=== PATIENT | female | born 1975 | race Caucasian/White ===

== ENCOUNTER 2017-12-27 08:07 | Emergency (ER) | payer MEDICAID ==
--- NOTE | 2017-12-27 08:55 | ER Document Report ---
ED General - General Chief Complaint: Chest Congestion Stated Complaint: COUGH Time Seen by Provider: 12/27/17 08:54 TRAVEL OUTSIDE OF THE [place] IN LAST 30 DAYS: No - Related Data Allergies/Adverse Reactions: Penicillins Allergy (Verified 08/10/13 15:51) Past Medical History - Social History Smoking Status: Current Every Day Smoker Chew tobacco use (# tins/day): No Frequency of alcohol use: None Drug Abuse: None Family History: Reviewed & Not Pertinent Patient has suicidal ideation: No Patient has homicidal ideation: No Neurological Medical History: Reports: Hx Migraine Renal/ Medical History: Denies: Hx Peritoneal Dialysis - Immunizations Hx Diphtheria, Pertussis, Tetanus Vaccination: No Physical Exam - Vital signs Vitals: Temp Pulse Resp BP Pulse Ox 97.8 F 64 16 124/81 97 12/27/17 08:21 12/27/17 08:21 12/27/17 08:21 12/27/17 08:21 12/27/17 08:21 Course - Vital Signs Vital signs: Temp Pulse Resp BP Pulse Ox 97.8 F 64 16 124/81 97 12/27/17 08:21 12/27/17 08:21 12/27/17 08:21 12/27/17 08:21 12/27/17 08:21
--- NOTE | 2017-12-27 09:35 | RADIOLOGY REPORT (SQ) ---
EXAM DESCRIPTION: CHEST PA/LAT COMPLETED DATE/TIME: 12/27/2017 9:28 am REASON FOR STUDY: cough congestion COMPARISON: Two-view chest 08/24/2013, 10/14/2009 EXAM PARAMETERS: NUMBER OF VIEWS: two views TECHNIQUE: Digital Frontal and Lateral radiographic views of the chest acquired. RADIATION DOSE: NA LIMITATIONS: none FINDINGS: LUNGS AND PLEURA: No opacities, masses or pneumothorax. No pleural effusion. MEDIASTINUM AND HILAR STRUCTURES: No masses or contour abnormalities. HEART AND VASCULAR STRUCTURES: Heart normal size. No evidence for failure. BONES: No acute findings. HARDWARE: None in the chest. OTHER: No other significant finding. IMPRESSION: NO SIGNIFICANT RADIOGRAPHIC FINDING IN THE CHEST. TECHNICAL DOCUMENTATION: JOB ID: [id number] [employer]- All Rights Reserved Reading location - IP/workstation name: [email or web address]
[2017-12-27] MEDS ORDERED: LORATADINE 10 MG TABLET PO ONE (09:54)
[2017-12-27] MEDS ORDERED: GUAIFENESIN 600 MG TABLET.SA PO ONE (09:54)
[2017-12-27] MEDS ORDERED: PSEUDOEPHEDRINE HCL 30 MG TABLET PO ONE (09:54)
--- NOTE | 2017-12-27 09:58 | ER Document Report ---
ED Respiratory Problem - General Chief Complaint: Chest Congestion Stated Complaint: COUGH Time Seen by Provider: 12/27/17 08:54 Mode of Arrival: Ambulatory Information source: Patient Notes: 42-year-old female presents to ED for complaint of cough congestion runny nose sore throat and earache. She states she is not bringing up any mucus. She states she was diagnosed with flu last week and just finished her Tamiflu. Does smoke a pack a day. TRAVEL OUTSIDE OF THE [place] IN LAST 30 DAYS: No - HPI Patient complains to provider of: Cough Onset: Last week Duration: Continuous Initiating Event: URI Quality of pain: Achy Severity: Moderate Pain Level: 3 Context: Smoker, Other - States she was diagnosed with flu last week finished her Tamiflu cough congestion Cough: Nonproductive Sputum amount: None Associated symptoms: Congestion, Cough, PND, Runny nose, Sinus pain/pressure, Sore Throat Similar symptoms previously: Yes Recently seen / treated by doctor: Yes - Related Data Allergies/Adverse Reactions: Penicillins Allergy (Verified 08/10/13 15:51) Past Medical History - Social History Smoking Status: Current Every Day Smoker Cigarette use (# per day): Yes - Pack per day Chew tobacco use (# tins/day): No Smoking Education Provided: Yes - 4 minutes Frequency of alcohol use: None Drug Abuse: None Occupation: Does not work Lives with: Family Family History: Reviewed & Not Pertinent. denies: Arthritis, CAD, COPD, CVA, DM , Hyperlipidemia, Hypertension, Malignancy, Thyroid Disfunction Patient has suicidal ideation: No Patient has homicidal ideation: No - Past Medical History Cardiac Medical History: Reports: None Pulmonary Medical History: Reports: None EENT Medical History: Reports: None Neurological Medical History: Reports: Hx Migraine Endocrine Medical History: Reports: None Renal/ Medical History: Reports: None Malignancy Medical History: Reports: None GI Medical History: Reports: None Musculoskeltal Medical History: Reports None Skin Medical History: Reports None Psychiatric Medical History: Reports: None Traumatic Medical History: Reports: None Infectious Medical History: Reports: None Surgical Hx: Negative Past Surgical History: Reports: None - Immunizations Immunizations up to date: Yes Hx Diphtheria, Pertussis, Tetanus Vaccination: No Review of Systems - Review of Systems Constitutional: Recent illness EENT: Nose congestion, Nose discharge, Sinus pressure, Sinus discharge, Throat pain Cardiovascular: No symptoms reported Respiratory: Cough Gastrointestinal: No symptoms reported Genitourinary: No symptoms reported Female Genitourinary: No symptoms reported Musculoskeletal: No symptoms reported Skin: No symptoms reported Hematologic/Lymphatic: No symptoms reported Neurological/Psychological: No symptoms reported -: Yes All other systems reviewed and negative Physical Exam - Vital signs Vitals: Temp Pulse Resp BP Pulse Ox 97.8 F 64 16 124/81 97 12/27/17 08:21 12/27/17 08:21 12/27/17 08:21 12/27/17 08:21 12/27/17 08:21 Interpretation: Normal - General General appearance: Appears well, Alert - HEENT Head: Normocephalic, Atraumatic Eyes: Normal Pupils: PERRL Ears: Normal External canal: Normal Tympanic membrane: Normal Nasal: Normal Mouth/Lips: Normal Mucous membranes: Normal Pharynx: Post nasal drainage. No: Erythema, Exudate, Peritonsillar abscess, Retropharyngeal abscess, Tonsillar hypertrophy, Uvular edema, Potential airway comprom. Neck: Normal - Respiratory Respiratory status: No respiratory distress Chest status: Nontender Breath sounds: Nonproductive cough. No: Productive cough, Rales, Rhonchi, Stridor, Wheezing Chest palpation: Normal - Cardiovascular Rhythm: Regular Heart sounds: Normal auscultation Murmur: No - Abdominal Inspection: Normal Distension: No distension Bowel sounds: Normal Tenderness: Nontender Organomegaly: No organomegaly - Back Back: Normal, Nontender - Extremities General upper extremity: Normal inspection, Nontender, Normal color, Normal ROM , Normal temperature General lower extremity: Normal inspection, Nontender, Normal color, Normal ROM , Normal temperature, Normal weight bearing. No: Socorro's sign - Neurological Neuro grossly intact: Yes Cognition: Normal Orientation: AAOx4 Micaela Coma Scale Eye Opening: Spontaneous Kane Coma Scale Verbal: Oriented Kane Coma Scale Motor: Obeys Commands Micaela Coma Scale Total: 15 Speech: Normal Motor strength normal: LUE, RUE, LLE, RLE Sensory: Normal - Psychological Associated symptoms: Normal affect, Normal mood - Skin Skin Temperature: Warm Skin Moisture: Dry Skin Color: Normal Course - Re-evaluation Re-evalutation: 12/27/17 10:Consistent with an upper respiratory infection. Patient was treated with Claritin and Sudafed Mucinex. Patient was instructed on use of Mondays. Patient encouraged to increase her p.o. fluids. Patient discharged home after her x-ray was discussed with her which was no acute changes. - Vital Signs Vital signs: Temp Pulse Resp BP Pulse Ox 98.5 F 62 16 103/64 97 12/27/17 10:14 12/27/17 10:14 12/27/17 08:21 12/27/17 10:14 12/27/17 10:14 - Diagnostic Test Radiology reviewed: Image reviewed, Reports reviewed Discharge - Discharge Clinical Impression: URI (upper respiratory infection) Qualifiers: URI type: unspecified URI Qualified Code(s): J06.9 - Acute upper respiratory infection, unspecified Condition: Stable Disposition: HOME, SELF-CARE Additional Instructions: UPPER RESPIRATORY ILLNESS: You have a viral infection of the respiratory passages -- a "cold." This common infection causes nasal congestion, drainage, and often sore throat and cough. It is highly contagious. The disease usually lasts about 10 to 14 days. There is no "cure" for the viral infection -- it must run its course. If there is a complication, such as bacterial infection in the nose, sinuses, middle ear, or bronchial tubes, antibiotics may be required. The antibiotics won't affect the virus. Drink plenty of fluids. A humidifier may help. An expectorant medication or decongestant may make you more comfortable. Use acetaminophen or ibuprofen for fever or aches. See the doctor if fever persists over two days, if there is any significant worsening of your symptoms, or if you simply fail to improve as expected. DECONGESTANT MEDICATION: A decongestant medicine has been suggested. Often this medicine is combined in the same tablet with an antihistamine or expectorant. This type of medicine is helpful in treating a bad cold or sinus condition, as well as in treatment of the nasal congestion of hay fever. It is not of much benefit for lung infections. Decongestant medicines are related to stimulants. They can cause an increase in blood pressure and heart rate. Persons with heart disease and high blood pressure should not take decongestants without discussing this with the physician. If you develop palpitations, chest pain, headache, or tremors, stop the medicine and consult your physician. COUGH-SUPPRESSANT & EXPECTORANT MEDICATION: You are to use a cough medication as needed for relief of symptoms. This medicine is a combination of an expectorant (to make the mucous thinner and more easily "coughed up") and a cough suppressant (to reduce the frequency of coughing). The cough-suppressant medicine is related to narcotics. You may experience mild nausea and sleepiness. Some patients who are very sensitive to narcotics may have stomach pain from this medicine. Taking the medicine with food reduces these side effects. Do not drive or work with machinery until you know how this medicine affects you. The expectorant should have no side effects. Iodine-containing expectorants (such as organidin) should not be taken by persons with active thyroid disease unless approved by your doctor. Call the doctor if you develop shortness of breath, hives, rash, itching, lightheadedness, or severe nausea and vomiting. USE OF ACETAMINOPHEN (Tylenol): Acetaminophen may be taken for pain relief or fever control. It's much safer than aspirin, offering a wider range of "safe" dosages. It is safe during . Some brand names are Tylenol, Panadol, Datril, Anacin 3, Tempra, and Liquiprin. Acetaminophen can be repeated every four hours. The following are maximum recommended dosages: >89 pounds or adults 650 mg to 900 mg Acetaminophen can be repeated every four hours. Maximum dose not to exceed 4000 mg a day. SMOKING: If you smoke, you should stop smoking. The tar and chemicals in cigarette smoke are harmful. Smoking has been shown to cause: emphysema chronic bronchitis lung cancer mouth and throat cancer stomach and pancreas cancer premature aging defects In addition, smoking increases ear and lung infections in children of smokers. You will treated with Claritin 10 mg, Sudafed 30 mg, and Mucinex 600 mg in the emergency room I suggest she use some Flonase at home. Can get this over-the- counter or at the [facility]. FOLLOW-UP CARE: If you have been referred to a physician for follow-up care, call the physician s office for an appointment as you were instructed or within the next two days. If you experience worsening or a significant change in your symptoms, notify the physician immediately or return to the Emergency Department at any time for re-evaluation. Forms: Smoking Cessation Education, Return to Work Referrals: ESDRAS CORREIA, DIGITAL MARKETING SPECIALIST-C [Primary Care Provider] - Follow up as needed
[2017-12-27 10:15] VITALS: BP 103/64
== END 2017-12-27 10:15 | disposition home or self-care (01) ==
LOC: ER 08:07
DX: J06.9 Acute upper respiratory infection, unspecified (principal); F17.210 Nicotine dependence, cigarettes, uncomplicated; Z88.0 Allergy status to penicillin
CPT/HCPCS: 99406; 99283; 71046; J3490 ×2

== ENCOUNTER 2018-03-21 18:10 | Emergency (ER) | payer MEDICAID ==
[2018-03-21 18:35] VITALS: BP 130/71
[2018-03-21] MEDS ORDERED: IBUPROFEN 800 MG TABLET PO ONE (19:18)
--- NOTE | 2018-03-21 19:23 | ER Document Report ---
ED Extremity Problem, Lower - General Chief Complaint: Leg Pain Stated Complaint: LEFT LEG PAIN Time Seen by Provider: 03/21/18 18:41 Mode of Arrival: Ambulatory Information source: Patient Notes: 42-year-old female presents to ED for complaint of the left knee and leg pain since March 08 when she was skating with her daughter and fell landing on her buttocks and has had pain in the left leg and knee since then. She states that the pain is getting progressively worse. She has not followed up with any primary doctor since the accident. She is alert and oriented speaking in full sentences respirations regular and unlabored. She was walking to come into the emergency room. TRAVEL OUTSIDE OF THE [place] IN LAST 30 DAYS: No - HPI Patient complains to provider of: Injury, Pain Location: Knee, Leg, Thigh Occurred: Last week Where: Public place - Skating rink Onset/Duration: Gradual, Worse Quality of pain: Achy, Sharp Severity: Moderate Pain Level: 3 Context: Fell Recent injury: Possibly Associated symptoms: Painful ambulation Exacerbated by: Walking Relieved by: Nothing - Related Data Allergies/Adverse Reactions: Penicillins Allergy (Verified 03/21/18 18:11) Past Medical History - General Information source: Patient - Social History Smoking Status: Current Every Day Smoker Cigarette use (# per day): Yes Smoking Education Provided: Yes - 4 min Frequency of alcohol use: None Drug Abuse: None Lives with: Family Family History: Reviewed & Not Pertinent Patient has suicidal ideation: No Patient has homicidal ideation: No - Past Medical History Cardiac Medical History: Reports: None Pulmonary Medical History: Reports: None EENT Medical History: Reports: None Neurological Medical History: Reports: Hx Migraine Endocrine Medical History: Reports: None Renal/ Medical History: Reports: None Malignancy Medical History: Reports: None GI Medical History: Reports: None Musculoskeltal Medical History: Reports Hx Musculoskeletal Deformity, Reports Hx Musculoskeletal Trauma Skin Medical History: Reports None Psychiatric Medical History: Reports: None Traumatic Medical History: Reports: None Infectious Medical History: Reports: None - Immunizations Immunizations up to date: Yes Hx Diphtheria, Pertussis, Tetanus Vaccination: No Review of Systems - Review of Systems Constitutional: No symptoms reported EENT: No symptoms reported Cardiovascular: No symptoms reported Respiratory: No symptoms reported Gastrointestinal: No symptoms reported Genitourinary: No symptoms reported Female Genitourinary: No symptoms reported Musculoskeletal: Joint pain - Left knee and leg pain muscular pain since March 08 , Muscle pain, Muscle stiffness Skin: No symptoms reported Hematologic/Lymphatic: No symptoms reported Neurological/Psychological: No symptoms reported Physical Exam - Vital signs Vitals: Temp Pulse Resp BP Pulse Ox 98.7 F 54 L 18 130/71 H 97 03/21/18 18:33 03/21/18 18:33 03/21/18 18:33 03/21/18 18:33 03/21/18 18:33 Interpretation: Normal - General General appearance: Appears well, Alert - HEENT Head: Normocephalic, Atraumatic Eyes: Normal Pupils: PERRL - Respiratory Respiratory status: No respiratory distress Chest status: Nontender Breath sounds: Normal Chest palpation: Normal - Cardiovascular Rhythm: Regular Heart sounds: Normal auscultation Murmur: No - Abdominal Inspection: Normal Distension: No distension Bowel sounds: Normal Tenderness: Nontender Organomegaly: No organomegaly - Back Back: Normal, Nontender - Extremities General upper extremity: Normal inspection, Nontender, Normal color, Normal ROM , Normal temperature General lower extremity: Normal inspection, Normal color, Normal ROM, Normal temperature, Normal weight bearing. No: Socorro's sign Thigh: Tender. No: Abrasion, Deformity, Dislocation, Ecchymosis, Instability, Laceration Knee: Tender, Pain with ROM, Patellar tendon intact, Tender joint line. No: Abrasion, Deformity, Dislocation, Drawer's test instability, Ecchymosis, Instability, Laceration, Laxity with valgus stress, Laxity with varus stress, Popliteal fossa tender, Unable to bear weight - Neurological Neuro grossly intact: Yes Cognition: Normal Orientation: AAOx4 Micaela Coma Scale Eye Opening: Spontaneous Micaela Coma Scale Verbal: Oriented Micaela Coma Scale Motor: Obeys Commands Micaela Coma Scale Total: 15 Speech: Normal Motor strength normal: LUE, RUE, LLE, RLE Sensory: Normal - Psychological Associated symptoms: Normal affect, Normal mood - Skin Skin Temperature: Warm Skin Moisture: Dry Skin Color: Normal Course - Re-evaluation Re-evalutation: 03/21/18 21:45 Patient is full range of motion of her knee. She states she fell a week and a half ago while gross rollerskating. She has been walking on her leg throughout this whole time. She has no joint swelling no joint deformity but she does have pain at the upper aspect of the knee and the thigh. She states that it hurts to bend her knee but she does is able to bend with no trouble. She requested a knee immobilizer and crutches and this was provided. She was instructed to please follow-up with her primary doctor and orthopedic doctor if this continues to be painful. - Vital Signs Vital signs: Temp Pulse Resp BP Pulse Ox 98.7 F 54 L 18 130/71 H 97 03/21/18 18:33 03/21/18 18:33 03/21/18 18:33 03/21/18 18:33 03/21/18 18:33 Procedures - Immobilization Left Knee Immobilizer type: Crutches, Knee immobilizer Performed by: RN Post-Proc Neuro Vasc Exam: Normal Alignment checked and good: Yes Discharge - Discharge Clinical Impression: Pain of left knee and lower leg, Left thigh pain Condition: Stable Disposition: HOME, SELF-CARE Additional Instructions: CONTUSION: Your injury has resulted in a contusion -- a crushing of the deep tissues. No injury to important structures was detected during the physician's exam. Contusions vary in the amount of pain they cause, and in the length of time required for healing. Typically, the area will become bruised, and will remain painful to touch for two or three weeks. However, most patients are back to working and playing within a few days. After the initial period of rest and cold-packs, your symptoms (together with the doctor's recommendations) will determine how rapidly you can get back to full activity. Usually this means "do what feels okay, but don't do things that hurt." If re-examination was recommended, it's important to follow up as instructed. Call the doctor or return any time if pain increases, if swelling becomes severe, if you develop numbness or weakness in an injured extremity, or if any other alarming symptoms occur. USE OF TYLENOL (ACETAMINOPHEN): Acetaminophen may be taken for pain relief or fever control. It's much safer than aspirin, offering a wider range of "safe" dosages. It is safe during . Some brand names are Tylenol, Panadol, Datril, Anacin 3, Tempra, and Liquiprin. Acetaminophen can be repeated every four hours. The following are maximum recommended dosages: WEIGHT Dose Drops Elixir Chewable( 80mg) (LBS.) drprs=droppers tsp=teaspoon 6 40 mg 0.4 ml (1/2) 6-11 80 mg 0.8 ml (full) tsp 1 tab 12-16 120 mg 1 1/2 drprs 3/4 tsp 1 1/2 tabs 17-23 160 mg 2 drprs 1 tsp 2 tabs 24-30 240 mg 3 drprs 1 1/2 tsp 3 tabs 30-35 320 mg 2 tsp 4 tabs 36-41 360 mg 2 1/4 tsp 4 1/2 tabs 42-47 400 mg 2 1/2 tsp 5 tabs 48-53 480 mg 3 tsp 6 tabs 54-59 520 mg 3 1/4 tsp 6 1/2 tabs 60-64 560 mg 3 1/2 tsp 7 tabs 65-70 600 mg 3 3/4 tsp 7 1/2 tabs 71-76 640 mg 4 tsp 8 tabs 77-82 720 mg 4 1/2 tsp 9 tabs 83-88 800 mg 5 tsp 10 tabs >89 pounds or adults 650 mg to 900 mg Acetaminophen can be repeated every four hours. Maximum dose not to exceed 4000 mg a day. These maximum recommended dosages are slightly higher than the dosages written on the product container, but these dosages are very safe and below the toxic dosage for acetaminophen. SUSPECTED INTERNAL KNEE INJURY: The examiner of your injured knee suspects an internal injury to the cartilage or internal ligaments. This must be further investigated by an physical security specialist. The knee should be protected, ice packed, and elevated while awaiting your follow-up exam by the orthopedist. If there is severe swelling, severe pain, or any new symptoms while awaiting your exam, you should call the orthopedist. (If he/she is unavailable, call us or return for re-examination.) KNEE IMMOBILIZING SPLINT: The knee immobilizing splint will protect the injury while healing begins. This type of splint does not allow the knee to bend at all. No running or sports will be possible. If the splint allows painfree walking, it's giving adequate protection. If there is still significant pain, crutches may be needed as well. Don't do anything that hurts. Adjusted the splint, if necessary. The stiffeners on the sides are attached with Velcro, so they can be easily moved to adjust for thigh and calf size. If you need help with these adjustments, come back. You will lose muscle strength in the thigh while using this splint. The doctor will advise you if it's safe to do isometric knee exercises while you use it. USE OF CRUTCHES: The doctor has recommended that you not bear weight at this time. You will need to use crutches. Adjust the crutches so the tops come to about two inches under the armpit while you are standing upright. Use your hands -- not your armpits -- to support your weight. To get into a chair, support yourself with one crutch on the injured side. Hold the chair with the other hand, then lower yourself while putting all your weight on the good leg. Going up stairs is `good leg up, step up, then bring up crutches and bad leg.' Down stairs is `bad leg and crutches down, then bring good leg down.' If you develop numbness or swelling in an arm or hand, you are using the crutches incorrectly. Return if you are having any problems with the crutches. ICE & ELEVATION: Apply ice packs frequently against the painful area. Many different schedules are recommended, such as "20 minutes on, 20 minutes off" or "one hour ice, two hours rest." If you need to work, you may need to go longer between ice treatments. You should plan to have the area ice packed AT LEAST one- fourth of the time. The ice should be applied over the wrap, tape, or splint, or over a layer of cloth -- not directly against the skin. Some ice bags have a built-in cloth and can be put directly on the skin. Your injured part should be elevated as much as possible over the next 48 hours. Try to keep the injury above the level of the heart. Avoid use of the injured area. Elevation and rest will decrease the swelling. USE OF FSIN-IIK-OZGPZYE IBUPROFEN: Ibuprofen (Advil, Nuprin, Medipren, Motrin IB) is a medication for fever and pain control. In addition, it has anti- inflammatory effects which may be beneficial, especially in the treatment of injuries. It's best to take ibuprofen with food. Persons with ulcer disease or allergy to aspirin should notify their physician of this before taking ibuprofen. Ibuprofen can be given every four to six hours, for a total of four doses daily. Age Pain or fever dose Antiinflammatory dose 6-8 yr 200 mg (1 tab) 200 mg (1 tab) 9-11 yr 200 mg (1 tab) 200-400 mg (1-2 tab) 11-14 yr 200-400 mg (1-2 tab) 400 mg (2 tab) 15-adult 400 mg (2 tab) 600 mg (3 tab) FOLLOW-UP CARE: If you have been referred to a physician for follow-up care, call the physician s office for an appointment as you were instructed or within the next two days. If you experience worsening or a significant change in your symptoms, notify the physician immediately or return to the Emergency Department at any time for re-evaluation. Prescriptions: Ibuprofen 600 mg PO Q8HP PRN #20 tablet PRN Reason: Forms: Elevated Blood Pressure, Smoking Cessation Education Referrals: ESDRAS CORREIA, ENVIRONMENTAL HEALTH MANAGER-C [COMMUNITY BASED STAFF] - Follow up as needed BAUTISTA ROBERTS MD [ACTIVE STAFF] - Follow up as needed
== END 2018-03-21 19:34 | disposition home or self-care (01) ==
LOC: ER 18:10
DX: M79.605 Pain in left leg (principal); M25.562 Pain in left knee; M79.652 Pain in left thigh; F17.210 Nicotine dependence, cigarettes, uncomplicated; Z88.0 Allergy status to penicillin
CPT/HCPCS: 99406; 99283; L1830; J3490

== ENCOUNTER 2018-11-21 09:54 | Emergency (ER) | payer MEDICAID ==
--- NOTE | 2018-11-21 10:30 | ER Document Report ---
ED General - General Chief Complaint: Chest Pain Stated Complaint: CHEST PAIN, SOB, ARM PAIN Primary Care Provider: HECTOR MOORE FNP [Primary Care Provider] - Follow up as needed TRAVEL OUTSIDE OF THE [place] IN LAST 30 DAYS: No - HPI Notes: Patient is a 43-year-old female no significant past medical history including cardiopulmonary medical history who presents to the emergency department complaining of chest tightness that began last evening and has been constant since with radiation to the left arm. Patient is unaware of anything that worsens or improves her pain. She is no soreness or sharp pains associated. She is able to ambulate without any difficulties. She is eating and drinking normally and having normal bowel movements and urinary behavior. No other concerns or complaints. Denies any smoking or IV drug abuse. Denies any prolonged immobilization, distance travel, recent surgery/trauma, personal cancer history, hormone use, or previous DVT/PE. Denies any headache, fever, neck pain, URI, sore throat, palpitations, syncope, cough, shortness of breath, wheeze, dyspnea, abdominal pain, nausea/vomiting/diarrhea, urinary retention, dysuria, hematuria, back pain, or rash. - Related Data Allergies/Adverse Reactions: Penicillins Allergy (Verified 11/21/18 09:55) Past Medical History - Social History Smoking Status: Never Smoker Family History: Reviewed & Not Pertinent Neurological Medical History: Reports: Hx Migraine Renal/ Medical History: Denies: Hx Peritoneal Dialysis Musculoskeletal Medical History: Reports Hx Musculoskeletal Deformity, Reports Hx Musculoskeletal Trauma - Immunizations Immunizations up to date: Yes Hx Diphtheria, Pertussis, Tetanus Vaccination: No Review of Systems - Review of Systems -: Yes All other systems reviewed and negative Physical Exam - Vital signs Vitals: Temp Pulse Resp BP Pulse Ox 98.0 F 67 18 117/64 98 11/21/18 10:09 11/21/18 10:11/21/18 10:11/21/18 10:11/21/18 10:09 - Notes Notes: PHYSICAL EXAMINATION: GENERAL: Well-appearing, well-nourished and in no acute distress. A&Ox4. Answers questions appropriately. HEAD: Atraumatic, normocephalic. EYES: Pupils equal round and reactive to light, extraocular movements intact, sclera anicteric, conjunctiva are normal. ENT: Nares patent and without discharge. oropharynx clear without exudates. No tonsilar hypertrophy or erythema. Moist mucous membranes. NECK: Normal range of motion, supple without lymphadenopathy LUNGS: Breath sounds clear to auscultation bilaterally and equal. No wheezes rales or rhonchi. HEART: Regular rate and rhythm without murmurs, rubs, gallops. ABDOMEN: Soft, nontender, nondistended abdomen. No guarding, no rebound. No masses appreciated. Normal bowel sounds present. No CVA tenderness bilaterally. Musculoskeletal: FROM to passive/active. Strength 5+/5. [place] neg. No asymmetry to LE's. Extremities: No cyanosis, clubbing, or edema b/l. Peripheral pulses 2+. Capillary refill less than 3 seconds. NEUROLOGICAL: Normal speech, normal gait. PSYCH: Normal mood, normal affect. SKIN: Warm, Dry, normal turgor, no rashes or lesions noted. Course - Re-evaluation Re-evalutation: 11/21/18 14:13 Patient is an afebrile, well-hydrated 43-year-old female who presents to the ED with atypical chest pain, unspecified. Vitals are acceptable without any significant tachycardia, tachypnea, or hypoxia. PE is otherwise unremarkable. Patient is nontoxic-appearing and is tolerating p.o. without any difficulties. Pt is currently asymptomatic. CBC, CMP, EKG/cardiac enzymes 2, chest x-ray are all unremarkable for any acute pathology. Patient has a heart score of 2, Wells score of 0, and is PERC negative. Patient does not have any chest pain, dyspnea, or shortness of breath. Patient's presentation and symptomatology creates low suspicion for ACS, PE, pneumothorax, pericarditis, dissection, respiratory compromise, severe dehydration, sepsis, meningitis, or other syst emic emergent condition at this time. Patient is aware that this condition can change from initial presentation and she needs to monitor symptoms closely and seek medical attention for any acute changes. Pt is feeling better and would like to go home. Recommend conservative measures for symptoms. Recheck with your PCM in 2-3 days. Consider consult with Cardiology. Return to the ED with any worsening/concerning symptoms otherwise as reviewed in discharge. Patient is in agreement. - Vital Signs Vital signs: Temp Pulse Resp BP Pulse Ox 98.0 F 67 15 107/67 98 11/21/18 10:09 11/21/18 10:09 11/21/18 13:03 11/21/18 13:03 11/21/18 13:03 - Laboratory Result Diagrams: 11/21/18 10:32 11/21/18 10:32 Laboratory results interpreted by me: 11/21/18 11/21/18 10:32 10:32 RDW 14.5 H Chloride 108 H Discharge - Discharge Clinical Impression: Atypical chest pain Condition: Stable Disposition: HOME, SELF-CARE Instructions: Chest Pain of Unclear Cause ([facility]) Additional Instructions: Maintain adequate fluid and food intake Take home medications as directed Healthy diet Monitor blood pressure daily and keep a log Monitor symptoms for any acute changes Recheck with your PCM in 2-3 days Consider a follow-up with cardiology Return to the ED with any worsening symptoms and/or development of fever, headache, chest pain, palpitations, syncope, shortness of breath, trouble br eathing, abdominal pain, n/v/d, blood in stool/urine, loss of control of bowel/bladder, urinary retention, muscle weakness/paralysis, numbness/tingling, or other worsening symptoms that are concerning to you. Referrals: HECTOR MOORE FNP [Primary Care Provider] - Follow up as needed SEBASTIAN MOE MD [ACTIVE STAFF] - Follow up as needed
--- NOTE | 2018-11-21 10:45 | EKG REPORT ---
SEVERITY:- NORMAL ECG - SINUS RHYTHM : Confirmed by: Vaishali Mahan MD 21-Nov-2018 10:44:16
[2018-11-21 10:54] LABS: ABSOLUTE BASOPHILS # (AUTO) 0.1 10^3/uL (0.0-0.2); ABSOLUTE EOSINOPHILS # (AUTO) 0.1 10^3/uL (0.0-0.6); ABSOLUTE LYMPHOCYTES (AUTO) 2.5 10^3/uL (0.5-4.7); ABSOLUTE MONOCYTES (AUTO) 0.7 10^3/uL (0.1-1.4); ABSOLUTE NEUT (AUTO) 5.7 10^3/uL (1.7-8.2); BASOPHILS % (AUTO) 0.8 % (0-2); EOSINOPHILS % (AUTO) 1.5 % (0-6); HEMATOCRIT 42.9 % (36.0-47.0); HEMOGLOBIN 15.1 g/dL (12.0-15.5); LYMPHOCYTES % (AUTO) 27.8 % (13-45); MEAN CORPUSCULAR HEMOGLOBIN 31.5 pg (27.0-33.4); MEAN CORPUSCULAR HGB CONC 35.2 g/dL (32.0-36.0); MEAN CORPUSCULAR VOLUME 90 fl (80-97); MONOCYTES % (AUTO) 7.4 % (3-13); PLATELET COUNT 302 10^3/uL (150-450); RED BLOOD COUNT 4.79 10^6/uL (3.72-5.28); RED CELL DISTRIBUTION WIDTH 14.5 % (11.5-14.0); SEGMENTED NEUTROPHILS % (AUTO) 62.5 % (42-78); TOTAL CELLS COUNTED % (AUTO) 100 %; WHITE BLOOD COUNT 9.1 10^3/uL (4.0-10.5)
--- NOTE | 2018-11-21 11:00 | RADIOLOGY REPORT (SQ) ---
EXAM DESCRIPTION: CHEST SINGLE VIEW COMPLETED DATE/TIME: 11/21/2018 10:50 am REASON FOR STUDY: CP COMPARISON: Two-view chest 12/27/2017 EXAM PARAMETERS: NUMBER OF VIEWS: One view. TECHNIQUE: Single frontal radiographic view of the chest acquired. RADIATION DOSE: NA LIMITATIONS: None. FINDINGS: LUNGS AND PLEURA: No opacities, masses or pneumothorax. No pleural effusion. MEDIASTINUM AND HILAR STRUCTURES: No masses. Contour normal. HEART AND VASCULAR STRUCTURES: Heart normal in size. Normal vasculature. BONES: No acute findings. HARDWARE: None in the chest. OTHER: No other significant finding. IMPRESSION: NO ACUTE RADIOGRAPHIC FINDING IN THE CHEST. TECHNICAL DOCUMENTATION: JOB ID: [id number] [employer]- All Rights Reserved Reading location - IP/workstation name: [email or web address]
[2018-11-21 11:14] LABS: ALANINE AMINOTRANSFERASE 26 U/L (9-52); ALBUMIN 4.4 g/dL (3.5-5.0); ALKALINE PHOSPHATASE 73 U/L (38-126); ANION GAP 9 (5-19); ASPARTATE AMINO TRANSFERASE 27 U/L (14-36); BILIRUBIN,DIRECT 0.3 mg/dL (0.0-0.4); BILIRUBIN,TOTAL 0.4 mg/dL (0.2-1.3); BLOOD UREA NITROGEN 9 mg/dL (7-20); CALCIUM 9.4 mg/dL (8.4-10.2); CARBON DIOXIDE 25 mmol/L (22-30); CHLORIDE 108 mmol/L (98-107); GLUCOSE 97 mg/dL (75-110); POTASSIUM 4.5 mmol/L (3.6-5.0); SODIUM 142.3 mmol/L (137-145); TOTAL PROTEIN 7.1 g/dL (6.3-8.2)
[2018-11-21 13:33] VITALS: BP 107/67
== END 2018-11-21 14:31 | disposition home or self-care (01) ==
LOC: ER 09:54
DX: R07.89 Other chest pain (principal); Z88.0 Allergy status to penicillin
CPT/HCPCS: 36415; 71045; 80053; 84484; 84703; 85025; 93005; 93010; 99284

== ENCOUNTER 2019-01-06 12:16 | Emergency (ER) | payer MEDICAID ==
[2019-01-06 12:34] VITALS: BP 118/55
== END 2019-01-06 13:39 | disposition left against medical advice (07) ==
LOC: ER 12:16
DX: Z53.21 Procedure and treatment not carried out due to patient leaving prior to being seen by health care provider (principal)

== ENCOUNTER → 2019-04-14 | Outpatient (CLI) | payer MEDICAID ==
--- NOTE | 2019-04-14 15:53 | RADIOLOGY REPORT (SQ) ---
EXAM DESCRIPTION: U/S NON-OB PELVIS W/O DOP COMPLETED DATE/TIME: 04/14/2019 3:29 pm REASON FOR STUDY: R10.2 PELVIC AND PERINEAL PAIN R10.2 PELVIC AND PERINEAL PAINN92.6 IRREGULAR MEN STRUATION, UNSPECIFIED COMPARISON: None. TECHNIQUE: Dynamic and static grayscale images acquired of the pelvis via transabdominal approach an d recorded on PACS. Additional selected color Doppler and spectral images recorded. LIMITATIONS: None. FINDINGS: UTERUS: Contour normal. No mass. ENDOMETRIAL STRIPE: No focal or generalized thickening. No masses. CERVIX: No nabothian cysts. RIGHT OVARY AND DOPPLER: Normal size. No worrisome masses. Normal arterial vascular flow without evid ence for torsion. LEFT OVARY AND DOPPLER: Normal size. Small subcentimeter follicle. Normal arterial vascular flow wit hout evidence for torsion. FREE FLUID: Very small amount of free fluid in the cul-de-sac may be physiologic. OTHER: No other significant finding. MEASUREMENTS: UTERUS: 8.5 x 5.2 x 4.2 cm ENDOMETRIAL STRIPE: 7.6 mm RIGHT OVARY: 2.8 x 2.2 x 1.7 cm LEFT OVARY: 2.9 x 2.0 x 2.0 cm IMPRESSION: 1. Small subcentimeter left ovarian follicle. 2. Very small amount of free fluid in the cul-de-sac may be physiologic. 3. Examination is otherwise unremarkable sonographically. TECHNICAL DOCUMENTATION: JOB ID: [id number] [employer]- All Rights Reserved Rev-02/22 Reading location - IP/workstation name: [email or web address]
--- NOTE | 2019-04-14 15:54 | RADIOLOGY REPORT (SQ) ---
EXAM DESCRIPTION: U/S NON-OB PELVIS TV W/O DOP COMPLETE DATE/TIME: 04/14/2019 3:29 pm REASON FOR STUDY: N92.6 IRREGULAR MENSTRUATION, UNSPECIFIED R10.2 PELVIC AND PERINEAL PAIN N92.6 I RREGULAR MENSTRUATION, UNSPECIFIED FINDINGS: Please see combined report for performance of procedure and radiologic supervision and int erpretation. IMPRESSION: Please see combined report for performance of procedure and radiologic supervision and i nterpretation. Reading location - IP/workstation name: [email or web address]
== END ==
LOC: RAD 14:55
PROVIDERS: ATTEND Nurse Practitioner Family
DX: R10.2 Pelvic and perineal pain (principal)
CPT/HCPCS: 76830; 76856